=== PATIENT | male | born 1960 | race Caucasian/White ===

== ENCOUNTER 2018-10-03 10:24 | Day surgery (SDC) | payer OTHER ==
[2018-09-20 14:19] VITALS: BMI 25.7
--- NOTE | 2018-09-21 09:40 | HP ---
DATE OF ADMISSION: 10/03/2018 DATE OF DICTATION: 09/13/2018 DATE OF SURGERY: 10/03/2018 BRIEF HISTORY: This is a 58-year-old gentleman with several-year history of having a left inguinal hernia. Over this time course, the patient states the hernia has gotten larger, and he has discomfort in the area. The discomfort is exacerbated with bending or Valsalva-type maneuvers. He also feels the hernia gets significantly larger when he has to move his bowels or becomes constipated. PAST MEDICAL HISTORY: Significant for prostate cancer. He is status post brachytherapy. He did not undergo a prostatectomy. Patient also has a history of being hypercoagulable. He is currently and chronically on Coumadin. Meniscus surgery. ALLERGIES: None. MEDICATIONS: Coumadin and various vitamins and baby aspirin. SOCIAL HISTORY: He smokes cigars. He drinks socially. PHYSICAL EXAMINATION: Abdomen: Soft, nontender, nondistended. He has a very large left inguinal hernia that is chronically incarcerated. Genitalia: The left scrotum appears to be within normal limits. The left testicle is atrophic as well as the right. The right is much smaller than that of the left. On the patient's right side, there is no obvious inguinal hernia noted. A fair amount of laxity is noted. Again, the scrotum is normal, but the testicle is atrophic. The testicle on the right is much smaller than that of the left. IMPRESSION/PLAN: Large, chronically incarcerated left inguinal hernia. This is a 58-year-old gentleman with a very large, chronically incarcerated left inguinal hernia. It is only partially reducible in the supine position. Both testicles are atrophic secondary, I suspect, to his brachytherapy. At this point, I would recommend a repair of his left inguinal hernia due to the fact that he is symptomatic. I suspect he probably has colon in the left inguinal hernia since the left groin becomes markedly enlarged should he become constipated. Patient will be scheduled for a laparoscopic left inguinal hernia repair. At the time of laparoscopy, the right side will be examined, and if an occult hernia is identified, it will be repaired. If no hernia is seen, a piece of mesh will be left in the direct inguinal space for reinforcement. The indications, alternatives, and complications discussed. Questions answered. Patient understands very clearly that due to the size of his hernia, he is more likely to develop a postoperative seroma which may or may not resolve. This problem will be exacerbated given the fact that he is on anticoagulation chronically. He also understands that after the operation, he is more likely to be bruised and develop a postoperative retroperitoneal hematoma which will take time to resolve. Due to the anticoagulation, he may require blood transfusion during this short interval time as well. He understands the risks and still wants to proceed with a laparoscopic procedure if possible. ESTHELA BENJAMIN M.D. [id number]
[2018-10-03] MEDS ORDERED: TAMSULOSIN HCL 0.4 MG CAP ONE (11:27)
[2018-10-03 12:09] LABS: INR 0.97 (0.82-1.09); PROTHROMBIN TIME (PATIENT) 10.9 SEC (10.2-13.0)
[2018-10-03] MEDS ORDERED: ROCURONIUM BROMIDE 50 MG/5 ML VIAL ONE (12:28)
[2018-10-03] MEDS ORDERED: ROPIVACAINE HCL 0.5% 30ML VIAL ONE (12:28)
[2018-10-03] MEDS ORDERED: MIDAZOLAM HCL 2 MG/2 ML SINGLE DOSE VIAL ONE ×2 (12:28)
[2018-10-03] MEDS ORDERED: ePHEDrine SULFATE 50 MG/1 ML AMPULE ONE (12:30)
[2018-10-03] MEDS ORDERED: DEXAMETHASONE SOD PHOSPHATE 4 MG/1 ML VIAL ONE (12:53)
[2018-10-03] MEDS ORDERED: ONDANSETRON 4 MG/2 ML VIAL ONE ×2 (12:53→14:41)
[2018-10-03] MEDS ORDERED: ceFAZolin SODIUM 1 GM VIAL ONE (12:53)
[2018-10-03] MEDS ORDERED: HYDROmorphone HCL/PF 1 MG/ML AMP ONE (12:58)
[2018-10-03] MEDS ORDERED: ONDANSETRON 4 MG/2 ML VIAL IVPUSH PRN (15:04)
[2018-10-03] MEDS ORDERED: oxyCODONE HCL 5 MG TABLET PO PRN ×2 (15:04)
[2018-10-03] MEDS ORDERED: LACTATED RINGERS SOLUTION 1,000 ML IV SCH (15:15)
[2018-10-03 15:31] VITALS: TEMP 98.2
--- NOTE | 2018-10-03 15:57 | OP ---
DATE OF OPERATION: 10/03/2018 PREOPERATIVE DIAGNOSIS: Chronically incarcerated left inguinal hernia. POSTOPERATIVE DIAGNOSIS: Chronically incarcerated left inguinal hernia (large indirect hernia), right indirect inguinal hernia. PROCEDURE: Laparoscopic repair of incarcerated left inguinal hernia with mesh, laparoscopic repair of right inguinal hernia with mesh. SURGEON: Royce Ludwig MD LABOR SPECIALIST: Henry Mclain DO ANESTHESIA: Benny Goldberg MD, general. ESTIMATED BLOOD LOSS: Minimal. SPECIMEN: None. INDICATION FOR PROCEDURE: This is a 58-year-old gentleman with a very large left inguinal hernia with extension into the proximal scrotum. It is chronically incarcerated and now causing him discomfort. He wishes to have this repaired. DESCRIPTION OF PROCEDURE: The patient was identified and appropriately positioned on the operating room table. After placement of general anesthesia, the abdomen was prepped and draped in the usual sterile fashion with ChloraPrep. An infraumbilical incision was made deep into the subcutaneous tissue. The fascia on the left rectus muscle was divided sharply and the muscle split. Under direct vision, a dissector balloon followed by a structural balloon placed. Also under direct vision, a suprapubic 11-mm port placed. The following structures on the left side were identified: Pubic tubercle, Grady's ligament, inferior epigastric vessels, spermatic cord, and lateral abdominal wall. During this dissection, the patient was noted to have a very large direct inguinal hernia sac. There was no direct component. The direct space was minimally attenuated. Due to the chronicity and incarcerated nature of this sac, a 5-mm right lower quadrant PD port was placed under direct vision to facilitate resection of this sac back into the preperitoneal space. The sac was bluntly and sharply reduced back into the preperitoneal space. A peritoneotomy was closed with US surgical clip farm equipment engine mechanic. A 4.5 x 6 piece of Versatex mesh was keyhole placed through the suprapubic port site. The mesh was wrapped around the cord structures laterally to reconstruct the internal ring. Laterally, mesh anchored to the anterior abdominal wall and lateral abdominal wall. Medially, mesh was anchored to the anterior abdominal wall, pubic tubercle, and Grady's ligament. Upon completion of the left side, similar structures on the right side identified. On the right side he had a small indirect inguinal hernia sac. The sac was from the cord structures with blunt and sharp dissection again. The peritoneotomy closed with US surgical clip farm equipment engine mechanic. Another 4.5 x 6 piece of Versatex mesh was keyhole placed through the suprapubic port site. The mesh was wrapped around the cord structures laterally to reconstruct the internal ring. Laterally, the mesh was anchored to the anterior abdominal wall, lateral abdominal wall. Medially, the mesh well overlapped in the midline anchored to the anterior abdominal wall, pubic tubercle, and Grady's ligament. There was good overlap of the midline 2 pieces of mesh. The preperitoneal space desufflated under direct vision. The operative field was noted to be hemostatic. The fascia both suprapubic and infraumbilical port site was reapproximated with interrupted 0 Vicryl suture. All skin closed with 4-0 Biosyn. The anchoring system was AbsorbaTack. Mesh used was Versatex. All anterior abdominal wall and lateral abdominal wall anchors were placed under direct counter palpation. At the conclusion of this case, sponge and instrument counts were correct. ATTESTATION: Brief operative note handwritten on the preprinted form. [facility] will be queried prior to giving any narcotics. Madhavi CORDOVA [id number] cc: Dr. Flo LOUIS
[2018-10-03 17:14] VITALS: BP 138/89; PULSE 70
== END 2018-10-03 17:00 | disposition home or self-care (01) ==
LOC: FASU 10:24
PROVIDERS: ATTEND Surgery
PROC: 0YUA4JZ Supplement Bilateral Inguinal Region with Synthetic Substitute, Percutaneous Endoscopic Approach (ICD-10-PCS; principal; 2018-10-03 12:58)
DX: K40.30 Unilateral inguinal hernia, with obstruction, without gangrene, not specified as recurrent (principal); K40.90 Unilateral inguinal hernia, without obstruction or gangrene, not specified as recurrent
CPT/HCPCS: 36415; 85610; 94760